=== PATIENT | female | born 1935 | race Caucasian/White ===

== ENCOUNTER 2018-04-19 20:52 | Observation (INO) | payer OTHER ==
[~2018-04-19] VITALS: Ht 154.9 cm; Wt 74.8 kg
[2018-04-19 22:04] LABS: HEMATOCRIT 38.9 % (36.0-46.0); HEMOGLOBIN 13.5 G/DL (11.9-15.5); MCH 32.8 PG (29.0-34.0); MCHC 34.7 G/DL (30.0-36.0); MCV 94.4 FL (83-99); PLATELET COUNT 257 K/uL (156-360); RBC DIS.WIDTH-SD 44.8 % (39-53); RED BLOOD COUNT 4.12 M/uL (3.80-5.20); WHITE BLOOD COUNT 8.8 K/uL (4.1-10.2)
[2018-04-19 22:14] LABS: ALBUMIN 4.2 g/dL (3.2-4.8); CHLORIDE 110 mEq/L (99-109); POTASSIUM 3.9 mEq/L (3.7-5.4); SODIUM 145 mEq/L (136-147)
[2018-04-19 22:15] LABS: MAGNESIUM 2.6 mg/dL (1.3-2.7); PTT 29.7 SEC (25-37)
[2018-04-19 22:16] LABS: GLUCOSE 119 mg/dL (70-99); TOTAL PROTEIN 7.3 g/dL (6.4-8.3)
[2018-04-19 22:18] LABS: TOTAL BILIRUBIN 0.2 mg/dL (0.0-1.0)
[2018-04-19 22:20] LABS: ALKALINE PHOSPHATASE 72 IU/L (3-129); CREATININE 0.9 mg/dL (0.6-1.3); GFR ESTIMATE (CALCULATED) > 59 mL/min/
[2018-04-19 22:21] LABS: UREA NITROGEN (BUN) 12 mg/dL (9-23)
[2018-04-19 22:22] LABS: AST (GOT) 17 IU/L (2-34)
[2018-04-19 22:23] LABS: ALT (GPT) 14 IU/L (3-49)
[2018-04-19 22:26] LABS: TROP-I INTERPRETATION NEGATIVE; TROPONIN-I < 0.01 ng/mL (0.0-0.30)
[2018-04-19] MEDS ORDERED: RED YEAST RICE600 MG PO (22:45)
[2018-04-19] MEDS ORDERED: CLARITIN,ALAVAR10 MG PO (22:46)
[2018-04-19] MEDS ORDERED: XOPENEX0.31 MG/3 IH (22:49)
[2018-04-19] MEDS ORDERED: TYLENOL EXTRA500 MG PO (22:49)
[2018-04-19] MEDS ORDERED: CALCIUM + D3 E1 EACH PO (22:50)
[2018-04-20 01:28] VITALS: BP 122/56
[2018-04-20 04:45] VITALS: BP 119/54
[2018-04-20 05:51] LABS: TROP-I INTERPRETATION NEGATIVE; TROPONIN-I 0.01 ng/mL (0.0-0.30)
[2018-04-20 07:42] LABS: THYROTROPIN (TSH) 1.9 MIU/L (0.4-5.5)
[2018-04-20 10:03] VITALS: BP 138/63
[2018-04-20] MEDS ORDERED: DILTIAZEM 24HR120 MG PO (10:07)
[2018-04-20] MEDS ORDERED: XARELTO20 MG PO (10:07)
== END 2018-04-20 13:15 | disposition home or self-care (01) ==
LOC: EME → EDBD 20:52 → 4EAST 04-20 00:28 → EDOF 04-20 00:28 → ENRESERV 04-20 00:31 → 4EAST 04-20 01:16
PROVIDERS: Emergency Medicine; Hospitalist
DX: I48.0 Paroxysmal atrial fibrillation (principal); R03.0 Elevated blood-pressure reading, without diagnosis of hypertension; R94.31 Abnormal electrocardiogram [ECG] [EKG]; J45.909 Unspecified asthma, uncomplicated; Z85.3 Personal history of malignant neoplasm of breast; Z90.11 Acquired absence of right breast and nipple; Z90.49 Acquired absence of other specified parts of digestive tract; Z90.710 Acquired absence of both cervix and uterus; Z82.49 Family history of ischemic heart disease and other diseases of the circulatory system; Z88.6 Allergy status to analgesic agent; Z88.8 Allergy status to other drugs, medicaments and biological substances
CPT/HCPCS: 71046; 80053; 83735; 83880; 84443; 84484; 85027; 85610; 85730; 93005; G0378